=== PATIENT | female | born 1995 | race Two or more races ===

== ENCOUNTER 2024-03-30 13:24 | Outpatient (CLI) | payer MEDICAID, SELFPAY ==
[2024-03-30 13:36] VITALS: BP 128/74; PULSE 77; PULSE 98; RESP 16; TEMP 37.2
[2024-03-30 13:39] VITALS: BMI 36.6
[2024-03-30 13:42] VITALS: TEMP 37.2
[2024-03-30] MEDS: BETAMET ACET/BETAMET NA PH (Celestone) 6 MG/ML VIAL 12 MG IM (14:12)
== END 2024-03-30 14:15 | disposition home or self-care (01) ==
LOC: S4S1 13:25 → S4SX 13:26
PROVIDERS: Referring Provider Specialist; Visit Provider Specialist
DX: Z34.03 Encounter for supervision of normal first pregnancy, third trimester (principal); Z36.9 Encounter for antenatal screening, unspecified; Z3A.35 35 weeks gestation of pregnancy
CPT/HCPCS: 59025; 96372; J0702

== ENCOUNTER 2024-03-31 14:12 | Outpatient (CLI) | payer MEDICAID, SELFPAY ==
[2024-03-31 14:18] VITALS: BMI 36.7
[2024-03-31 14:28] VITALS: BP 117/61; PULSE 92
[2024-03-31] MEDS: BETAMET ACET/BETAMET NA PH (Celestone) 6 MG/ML VIAL 12 MG IM (14:53)
== END 2024-03-31 15:05 | disposition home or self-care (01) ==
LOC: S4S1 14:15 → S4SX 14:15
PROVIDERS: Referring Provider Specialist; Visit Provider Specialist
DX: Z34.03 Encounter for supervision of normal first pregnancy, third trimester (principal); Z36.9 Encounter for antenatal screening, unspecified; Z3A.35 35 weeks gestation of pregnancy
CPT/HCPCS: 59025; 96372; J0702

== ENCOUNTER 2024-04-06 03:38 | Observation (INO) | payer MEDICAID, SELFPAY ==
[2024-04-06] VITALS (13 sets, daily range): BP systolic 133–140; BP diastolic 83–86; PULSE 64–79; O2SAT 98–100; BMI 37.4
--- NOTE | 2024-04-06 04:31 | ESOP_ITS ---
Operative Note - PHARMACOGENETICIST Procedure Date of procedure: 04/06/24 Procedure Performed: Removal of Transvaginal Cervical Cerclage Indication: Contractions at 36 weeks. Pre-Op diagnosis: IUP 36 weeks Incompetent Cervix Contractions with Cerclage in place. Post-Op diagnosis: Same Cervix -/-2/vtx/I Anesthesia type: None Procedure description: Cervical cerclage removal. Implants: None Findings: Mersilene cerclage in place at 12 oclock Complications: none Narrative: Speclum placed Cerclage grasped with ring forceps. Tolu Scissors used to remove cerclage Surgical staff [place] Diagnosis Discharge Diagnosis (1) Incompetent cervix in : Status: Acute Problem List Completed Was Problem List Reviewed/Reconciled?: Yes
[2024-04-06] MEDS: BETAMET ACET/BETAMET NA PH (Celestone) 6 MG/ML VIAL 12 MG IM (05:00)
[2024-04-06 05:32] LABS: Collection Type, Urine Clean Catch; RBC,Urine 0 /hpf (0-3)
[2024-04-06 05:37] LABS: Basophils % (Auto) 0 % (0-2.5); Eosinophils # (Auto) 0.1 Thou/mm3 (0.0-0.5); Eosinophils % (Auto) 1 % (0-10); Hematocrit 36.7 % (36.0-46.0); Hemoglobin 12.6 g/dL (12.0-16.0); Immature Granulocytes % (Auto) 0 % (0-0); Immature Granulocytes Auto 0.03 Thou/mm3 (0.00-0.00); Lymphocytes # (Auto) 2.3 Thou/mm3 (1.0-4.8); Lymphocytes % (Auto) 30 % (10-50); Mean Corpuscular HGB Conc 34.3 g/dl (31.0-37.0); Mean Corpuscular Hemoglobin 30.1 pg (25.0-35.0); Mean Corpuscular Volume 88 fL (80-100); Monocytes # (Auto) 0.6 Thou/mm3 (0.0-0.8); Monocytes % (Auto) 8 % (0-12); Neutrophils # (Auto) 4.6 Thou/mm3 (1.8-7.7); Neutrophils % (Auto) 61 % (37-80); Nucleated Red Blood Cell % 0 /100 WBC (0); Platelet Count 208 Thou/mm3 (140-440); RDW Standard Deviation 43.3 fL (36.4-46.3); Red Blood Count 4.19 Miln/mm3 (4.00-5.20); White Blood Count 7.5 Thou/mm3 (3.6-11.0)
[2024-04-06 05:58] LABS: Alanine Aminotransferase 17 U/L (10-49); Albumin, Serum 3.3 gm/dL (3.5-5.0); Albumin/Globulin Ratio 1.4 (1.2-2.2); Alkaline Phosphatase 158 U/L (46-116); Anion Gap 9 (7-16); Aspartate Amino Transferase 12 U/L (0-34); BUN/Creatinine Ratio 32 Ratio (12-20); Bilirubin,Total 0.3 mg/dL (0.3-1.2); Blood Urea Nitrogen 16 mg/dL (9-23); Calcium 8.6 mg/dL (8.3-10.6); Calcium (Corrected) 9.2 mg/dL (8.5-10.1); Carbon Dioxide 22.2 mMol/L (20.0-31.0); Chloride 106 mMol/L (98-107); Creatinine (Component) 0.5 mg/dL (0.6-1.3); Estimated Creatinine Clearance 189.8 mL/min (>60); Globulin 2.3 gm/dL (2.3-3.5); Glucose 104 mg/dL (74-106); LDH (Lactate Dehydrogenase) 188 U/L (120-246); Osmolality,Calculated 275 (275-295); Potassium 3.7 mMol/L (3.4-5.1); Sodium 137 mMol/L (136-145); Total Protein 5.6 gm/dL (5.7-8.2); Uric Acid 4.4 mg/dL (3.1-7.8); eGFR > 60 See Note
[2024-04-06 06:18] LABS: Bacteria,Urine Rare; Bilirubin,Urine Negative (Negative); Blood,Urine Negative (Negative); Clarity,Urine Clear (Clear/Hazy); Color,Urine Lt-Yellow (Lt Yel-Yel); Glucose, Urine Negative (Negative); Ketones,Urine Negative (Negative); Leukocyte Esterase,Urine Positive (Negative); Nitrite,Urine Negative (Negative); PH,Urine 6.5 (5.0-7.0); Protein,Urine 2+ (Neg - Trace); Squamous Epithelial Cell,Urine 2 /hpf (0-5); Urobilinogen,Urine Negative mg/dL (0.0-1.0); WBC,Urine 20 /hpf (0-5)
[2024-04-06 06:53] LABS: Fibrinogen 467 mg/dL (175-375); INR 0.9 (0.9-1.3); Partial Thromboplastin Time 26.3 Seconds (22.0-36.0); Prothrombin Time 10.1 Seconds (9.0-12.2)
== END 2024-04-06 06:08 | disposition home or self-care (01) ==
PROVIDERS: Admitting Provider Specialist; PCP Family Medicine; Visit Provider Specialist
DX: O47.03 False labor before 37 completed weeks of gestation, third trimester (principal); O34.33 Maternal care for cervical incompetence, third trimester; Z3A.36 36 weeks gestation of pregnancy
CPT/HCPCS: 36415; 59025; 59899; 80053; 81001; 83615; 84550; 85025; 85384; 85610; 85730; 96372; J0702

== ENCOUNTER 2024-04-21 11:32 | Outpatient (CLI) | payer MEDICAID, SELFPAY ==
[2024-04-21] VITALS (9 sets, daily range): BP systolic 106–144; BP diastolic 64–87; PULSE 71–85; RESP 18–99; TEMP 36.8; BMI 38.3
[2024-04-21] MEDS: ACETAMINOPHEN 325 MG TABLET 650 MG PO (12:24)
[2024-04-21 12:27] LABS: Collection Type, Urine Clean Catch
[2024-04-21 12:28] LABS: Basophils % (Auto) 0 % (0-2.5); Eosinophils # (Auto) 0.1 Thou/mm3 (0.0-0.5); Eosinophils % (Auto) 1 % (0-10); Hematocrit 38.1 % (36.0-46.0); Hemoglobin 13.2 g/dL (12.0-16.0); Immature Granulocytes % (Auto) 0 % (0-0); Immature Granulocytes Auto 0.03 Thou/mm3 (0.00-0.00); Lymphocytes % (Auto) 24 % (10-50); Mean Corpuscular HGB Conc 34.6 g/dl (31.0-37.0); Mean Corpuscular Hemoglobin 30.6 pg (25.0-35.0); Mean Corpuscular Volume 88 fL (80-100); Monocytes # (Auto) 0.6 Thou/mm3 (0.0-0.8); Monocytes % (Auto) 8 % (0-12); Neutrophils # (Auto) 5.6 Thou/mm3 (1.8-7.7); Neutrophils % (Auto) 67 % (37-80); Nucleated Red Blood Cell % 0 /100 WBC (0); Platelet Count 225 Thou/mm3 (140-440); RDW Standard Deviation 47.8 fL (36.4-46.3); Red Blood Count 4.31 Miln/mm3 (4.00-5.20); White Blood Count 8.3 Thou/mm3 (3.6-11.0)
[2024-04-21 12:41] LABS: Alanine Aminotransferase 26 U/L (10-49); Albumin, Serum 3.4 gm/dL (3.5-5.0); Albumin/Globulin Ratio 1.5 (1.2-2.2); Alkaline Phosphatase 177 U/L (46-116); Anion Gap 9 (7-16); Aspartate Amino Transferase 18 U/L (0-34); BUN/Creatinine Ratio 20 Ratio (12-20); Bilirubin,Total 0.3 mg/dL (0.3-1.2); Blood Urea Nitrogen 14 mg/dL (9-23); Calcium 8.4 mg/dL (8.3-10.6); Calcium (Corrected) 8.9 mg/dL (8.5-10.1); Carbon Dioxide 24.6 mMol/L (20.0-31.0); Chloride 103 mMol/L (98-107); Creatinine (Component) 0.7 mg/dL (0.6-1.3); Estimated Creatinine Clearance 137.3 mL/min (>60); Globulin 2.2 gm/dL (2.3-3.5); Glucose 84 mg/dL (74-106); LDH (Lactate Dehydrogenase) 214 U/L (120-246); Osmolality,Calculated 273 (275-295); Potassium 4.1 mMol/L (3.4-5.1); Sodium 137 mMol/L (136-145); Total Protein 5.6 gm/dL (5.7-8.2); Uric Acid 6.2 mg/dL (3.1-7.8); eGFR > 60 See Note
[2024-04-21 12:48] LABS: Fibrinogen 585 mg/dL (175-375); INR 0.9 (0.9-1.3); Partial Thromboplastin Time 27.6 Seconds (22.0-36.0)
[2024-04-21 13:08] LABS: Bacteria,Urine Rare; Bilirubin,Urine Negative (Negative); Blood,Urine Trace (Negative); Color,Urine Yellow (Lt Yel-Yel); Glucose, Urine Negative (Negative); Ketones,Urine Negative (Negative); Leukocyte Esterase,Urine Positive (Negative); Nitrite,Urine Negative (Negative); PH,Urine 6.5 (5.0-7.0); Protein,Urine 2+ (Neg - Trace); RBC,Urine < 1 /hpf (0-3); Specific Gravity,Urine 1.015 (1.001-1.035); Squamous Epithelial Cell,Urine 10 /hpf (0-5); Urobilinogen,Urine Negative mg/dL (0.0-1.0); WBC,Urine 32 /hpf (0-5)
[2024-04-21 13:11] LABS: Clarity,Urine Hazy (Clear/Hazy)
[2024-04-21] MEDS: MEPERIDINE INJ 50 MG/ML VIAL IM (13:50)
[2024-04-21] MEDS: PROMETHAZINE INJ 25 MG/ML VIAL IM (13:50)
== END 2024-04-21 15:10 | disposition home or self-care (01) ==
LOC: S4S1 11:32 → S4SX 11:33
PROVIDERS: Referring Provider Specialist; Visit Provider Specialist
DX: Z34.03 Encounter for supervision of normal first pregnancy, third trimester (principal); Z36.9 Encounter for antenatal screening, unspecified; Z3A.38 38 weeks gestation of pregnancy
CPT/HCPCS: 36415; 59025; 80053; 81001; 83615; 84550; 85025; 85384; 85610; 85730; 96372; J2175; J2550; A9270

== ENCOUNTER 2024-04-22 12:22 | Inpatient (IN) | payer MEDICAID, SELFPAY ==
--- NOTE | 2024-04-21 10:49 | ESHP_ITS ---
RE: STEFANIE ALFRED : 1995 DATE OF ADMISSION: 04/22/2024 HISTORY OF PRESENT ILLNESS: This is a 29-year-old 2 para 0-0-1-0 with due date of 05/04 with intrauterine at 38 weeks and 2 days who presents for contractions. The patient's is complicated by incompetent cervix and she had a cerclage placed on 01/02 and the cerclage was removed on 04/06. She received betamethasone on 03/30 and 03/31 for cholestasis of and has been taking Ursodiol. She is a GDMA1 diet controlled. She has had a headache off and on since yesterday and is noted to have elevated blood pressures and proteinuria. ALLERGIES: LATEX AND SHRIMP. MEDICATIONS: 1. multivitamin 1 p.o. daily. 2. Aspirin 81 mg 1 p.o. daily. 3. Ursodiol 300 mg 1 p.o. b.i.d. 4. Omeprazole 20 mg 1 p.o. daily p.r.n. heartburn. PAST MEDICAL HISTORY: Incompetent cervix, right ovarian cyst, depression, spontaneous at 18 weeks with chorioamnionitis, incompetent cervix, gastroesophageal reflux disease, chronic low back pain. PAST SURGICAL HISTORY: Cervical cerclage placement on 01/03/2024, cervical cerclage removal on 04/06/2024. SOCIAL HISTORY: She denies any alcohol drug use or smoking. OBSTETRIC HISTORY: 05/29/2020, 18 weeks spontaneous , no D and C, chorioamnionitis. FAMILY HISTORY: Denies. REVIEW OF SYSTEMS: She denies any chest pain, palpitations, cough, fever, shortness of breath, or lower extremity pain. She denies any headache, change in vision or right upper quadrant pain. PHYSICAL EXAMINATION: VITAL SIGNS: Blood pressure 143/92, heart rate 70, respirations 18, temperature 98.2, weight 220 pounds. HEENT: Oropharynx and sclerae are clear. LUNGS: Clear to auscultation bilaterally. HEART: Regular rate and rhythm. ABDOMEN: Gravid, term size consistent with estimated weight 7.5 pounds. PELVIC: See RN notes. EXTREMITIES: Nontender. SKIN: No gross rashes or lesions. NEUROLOGIC: No focal deficit. ASSESSMENT: Intrauterine at 38 weeks and 2 days; gestational diabetes mellitus class A1, well controlled; cholestasis of ; incompetent cervix status post removal of cervical cerclage, preeclampsia. PLAN: Induction of labor. Anticipate spontaneous vaginal delivery. Informed consent was obtained. The patient has been aware of the risks, complications, alternatives, and benefits of the proposed procedure and she agrees. She is aware of the risk of operative vaginal delivery and delivery and agrees with these modes of delivery if indicated. DT: 10:15:30 TT: 10:46:00 Ref: [id number] - TID: [id number] MTDD
[2024-04-22] VITALS (57 sets, daily range): BP systolic 0–166; BP diastolic 0–103; PULSE 72–97; RESP 16–98; TEMP 36.7; O2SAT 96–99; BMI 38.0
[2024-04-22 14:43] LABS: Collection Type, Urine Clean Catch
[2024-04-22 14:44] LABS: Basophils % (Auto) 0 % (0-2.5); Eosinophils # (Auto) 0.1 Thou/mm3 (0.0-0.5); Eosinophils % (Auto) 1 % (0-10); Hematocrit 37.8 % (36.0-46.0); Hemoglobin 13.3 g/dL (12.0-16.0); Immature Granulocytes % (Auto) 0 % (0-0); Immature Granulocytes Auto 0.03 Thou/mm3 (0.00-0.00); Lymphocytes # (Auto) 1.6 Thou/mm3 (1.0-4.8); Lymphocytes % (Auto) 18 % (10-50); Mean Corpuscular HGB Conc 35.2 g/dl (31.0-37.0); Mean Corpuscular Hemoglobin 30.6 pg (25.0-35.0); Mean Corpuscular Volume 87 fL (80-100); Monocytes # (Auto) 0.6 Thou/mm3 (0.0-0.8); Monocytes % (Auto) 7 % (0-12); Neutrophils # (Auto) 6.6 Thou/mm3 (1.8-7.7); Neutrophils % (Auto) 74 % (37-80); Nucleated Red Blood Cell % 0 /100 WBC (0); Platelet Count 223 Thou/mm3 (140-440); RDW Standard Deviation 46.6 fL (36.4-46.3); Red Blood Count 4.34 Miln/mm3 (4.00-5.20)
[2024-04-22 15:02] LABS: Alanine Aminotransferase 46 U/L (10-49); Albumin, Serum 3.3 gm/dL (3.5-5.0); Albumin/Globulin Ratio 1.6 (1.2-2.2); Alkaline Phosphatase 183 U/L (46-116); Anion Gap 9 (7-16); Aspartate Amino Transferase 39 U/L (0-34); BUN/Creatinine Ratio 22 Ratio (12-20); Bilirubin,Total 0.3 mg/dL (0.3-1.2); Blood Urea Nitrogen 13 mg/dL (9-23); Calcium 8.5 mg/dL (8.3-10.6); Calcium (Corrected) 9.1 mg/dL (8.5-10.1); Carbon Dioxide 22.1 mMol/L (20.0-31.0); Chloride 105 mMol/L (98-107); Creatinine (Component) 0.6 mg/dL (0.6-1.3); Estimated Creatinine Clearance 159.4 mL/min (>60); Globulin 2.1 gm/dL (2.3-3.5); Glucose 94 mg/dL (74-106); LDH (Lactate Dehydrogenase) 214 U/L (120-246); Osmolality,Calculated 272 (275-295); Sodium 136 mMol/L (136-145); Total Protein 5.4 gm/dL (5.7-8.2); eGFR > 60 See Note
[2024-04-22 15:08] LABS: Bilirubin,Urine Negative (Negative); Blood,Urine 1+ (Negative); Color,Urine Yellow (Lt Yel-Yel); Glucose, Urine Negative (Negative); Ketones,Urine Negative (Negative); Leukocyte Esterase,Urine Positive (Negative); Nitrite,Urine Negative (Negative); Protein,Urine 3+ (Neg - Trace); RBC,Urine 22 /hpf (0-3); Specific Gravity,Urine 1.033 (1.001-1.035); Squamous Epithelial Cell,Urine 11 /hpf (0-5); Urobilinogen,Urine Negative mg/dL (0.0-1.0); WBC,Urine 55 /hpf (0-5)
[2024-04-22 15:20] LABS: Fibrinogen 574 mg/dL (175-375); INR 0.9 (0.9-1.3); Partial Thromboplastin Time 27.2 Seconds (22.0-36.0); Prothrombin Time 9.9 Seconds (9.0-12.2)
[2024-04-22 15:21] LABS: Syphilis Nonreactive (Nonreactive)
[2024-04-22 16:27] LABS: Clarity,Urine Hazy (Clear/Hazy)
[2024-04-22] MEDS: MISOPROSTOL 50 mCg TABLET PO ×2 (17:00→22:53)
[2024-04-22] MEDS: INSULIN HUM REGULAR 1 UNIT/0.01 ML (PER UNIT) SC (20:48)
[2024-04-22] MEDS: SODIUM CHLORIDE 0.9% 1000 ML 1,000 ML 125 ML IV (23:13)
[2024-04-23] VITALS (49 sets, daily range): BP systolic 0–166; BP diastolic 0–92; PULSE 67–99; RESP 13–18; TEMP 36.2–37.1; O2SAT 96–99
[2024-04-23] MEDS: PANTOPRAZOLE INJ 40 MG VIAL IVP (01:00)
[2024-04-23] MEDS: cefTRIAXone/D5w 1gm IV premix 50 ML IV ×2 (01:00→21:29)
[2024-04-23 03:11] LABS: Amphetamine/Metham Scrn,Ur OB Negative (Negative); Benzoylecgonine Screen, Ur OB Negative (Negative); Opiate Screen,Urine OB Negative (Negative); THC Screen,Urine OB Negative (Negative)
[2024-04-23] MEDS: MISOPROSTOL 50 mCg TABLET PO ×2 (03:32→09:37)
[2024-04-23] MEDS: ONDANSETRON INJ 2 MG/ML INJ 2 ML 4 MG IV (06:05)
[2024-04-23] MEDS: SODIUM CHLORIDE 0.9% 1000 ML 1,000 ML 125 ML IV ×2 (07:14→14:16)
[2024-04-23] MEDS: INSULIN HUM REGULAR 1 UNIT/0.01 ML (PER UNIT) SC (08:02)
[2024-04-23] MEDS: fentaNYL CIT INJ 50 mCg/ML AMP 2ML 100 MCG IV ×2 (09:35→13:11)
--- NOTE | 2024-04-23 13:50 | PD.LDPN ---
Documentation for date of: 04/23/24 OB Labor Progress Note Pain Control Comments: Fentanyl Pelvic Exam Dilation (cm): 3 Effacement (%): 50 station: -3 Amniotic membrane status: Intact Contractions Monitor mode: External Contraction frequency: OCCASIONAL Contraction intensity: Mild Status status: Category l Assessment and Plan Comments: Declines further trial of induction of labor and desires Delivery. Plan C/S: Informed consent was obtained. The patient was made aware of the risk complications alternatives and benefits of the proposed procedure and she agrees.
[2024-04-23] MEDS: FAMOTIDINE INJ 10 MG/ML VIAL 2 ML 20 MG IV (14:36)
[2024-04-23] MEDS: ceFAZolin/D5W 2 GM IV 2 GM/100 ML BAG IV (14:36)
[2024-04-23] MEDS: METOCLOPRAMIDE INJ 5 MG/ML VIAL 2 ML 10 MG IVP (14:36)
--- NOTE | 2024-04-23 16:05 | ESDS_ITS ---
DS: Providers Provider Date of admission: 04/22/24 14:13 Primary care physician: Physician No Primary/Family Admitting Provider: Narendra Huff MD Attending Provider on Admission: Narendra Huff MD Attending Provider on DC: Narendra Huff MD Discharging Provider: Narendra Huff MD DS: Diagnosis Problem List Completed Was Problem List Reviewed/Reconciled?: Yes Summary/Hosp Course Peripartum Data Procedures: Procedures Operation Date: 04/23/24 15:30 <No data on this case meets the specified criteria> Operation Date: 04/24/24 14:45 <No data on this case meets the specified criteria> Time Spent with Patient Time attestation: Total time spent providing and/or coordinating discharge services: Exam Vital Signs Temp Pulse Resp BP Pulse Ox 98.8 F 68 18 160/85 H 98 04/23/24 07:11 04/23/24 14:26 04/23/24 07:11 04/23/24 14:26 04/22/24 14:35 Discharge Plan Plan Patient Disposition: HOME (Self Care) Patient condition on transfer: Stable Prescriptions/Referrals Prescriptions/Med Rec: New hydrocodone-acetaminophen 5-325 mg tablet 1 tab PO Q6H MDD 4 PRN (Reason: pain) Qty: 20 0RF ibuprofen 600 mg tablet 600 mg PO Q6H PRN (Reason: pain) Qty: 30 0RF Continued [id number] 1 mg Tablet See Rx Instructions .ROUTE .COMPLEX Rx Instructions: as instructed Referrals: No Primary/Family,Physician [Primary Care Provider] - Patient/Caregiver Discharge Instructions Discharge Activity: activity as tolerated Other Discharge Activity Instructions:: Follow up office 1 week. Print Language: Guyanese Stand Alone Forms: Dinorah Award Info., Patient Portal Info Letter Discharge Order Discharge Orders: Discharge (Routine); Ordered 04/25/24 Ordered By: Narendra Huff Planned Discharge Date 04/25/24
--- NOTE | 2024-04-23 16:19 | SUR.PHASEI ---
1619: Pt. AAOx4, vitals stable, breathing unlabored, no complaint of pain or nausea, dressing to lower ABD CDI, peripad in place with minimal amount of blood, report received from Jesse HAMPTON, Lea HAMPTON and Bernabe YAO.
--- NOTE | 2024-04-23 16:30 | SUR.PHASEI ---
1630: Report given to Edwin RN, pt. AAOx4, vitals stable, breathing unlabored, no complaint of pain or nausea, dressing to lower ABD CDI, peripad in place with minimal amount of blood.
--- NOTE | 2024-04-23 16:30 | SUR.PHASEI ---
1630: received report from BERTA Boyce. pt alert and oriented x3. denies any pain or discomfort.no s/s of resp. distress or discomfort.dressing to lower mis abdomen clean, dry and intact; no active bleeding from dressing noted. xiong cath in place intact with clear yellow urine in the xiong bag.
--- NOTE | 2024-04-23 17:40 | SUR.PHASEI ---
1740: report given to BERTA Couch. pt alert and oriented x3. denies any pain or discomfort. no s/s of resp. distress or discomfort. dressing to lower mid abdomen clean, dry and intact. xiong cath in place and intact with yellow color urine output. estimated urine output 50 ml.
--- NOTE | 2024-04-23 17:45 | SUR.PHASEI ---
1745: transfer to [facility] to room [id number] via bed with staff. pt alert and oriented x3. denies any pain or discomfort. no s/s of resp. distress or discomfort. dressing to lower mid abdomen clean, dry and intact. xiong cath in place and intact with yellow color urine output.
[2024-04-23] MEDS: OXYTOCIN in NS 20 units 20 UNIT/1,000 ML BAG 125 UNIT IV (19:25)
--- NOTE | 2024-04-23 20:18 | PC.NURSE ---
pharmacy called by primary RN to re-time rocephin and have medication delivered to OB.
[2024-04-23 22:27] LABS: Basophils % (Auto) 0 % (0-2.5); Eosinophils % (Auto) 0 % (0-10); Hematocrit 33.5 % (36.0-46.0); Hemoglobin 11.6 g/dL (12.0-16.0); Immature Granulocytes % (Auto) 0 % (0-0); Immature Granulocytes Auto 0.05 Thou/mm3 (0.00-0.00); Lymphocytes # (Auto) 1.7 Thou/mm3 (1.0-4.8); Lymphocytes % (Auto) 15 % (10-50); Mean Corpuscular HGB Conc 34.6 g/dl (31.0-37.0); Mean Corpuscular Hemoglobin 30.6 pg (25.0-35.0); Mean Corpuscular Volume 88 fL (80-100); Monocytes # (Auto) 0.8 Thou/mm3 (0.0-0.8); Monocytes % (Auto) 7 % (0-12); Neutrophils # (Auto) 8.8 Thou/mm3 (1.8-7.7); Neutrophils % (Auto) 77 % (37-80); Nucleated Red Blood Cell % 0 /100 WBC (0); Platelet Count 241 Thou/mm3 (140-440); RDW Standard Deviation 49.5 fL (36.4-46.3); Red Blood Count 3.79 Miln/mm3 (4.00-5.20); White Blood Count 11.5 Thou/mm3 (3.6-11.0)
[2024-04-23] MEDS: KETOROLAC INJ 30 MG/ML VIAL IVP (23:51)
--- NOTE | 2024-04-24 07:07 | PD.LDDELS ---
Data (Guzman) Data Hx Section: No : 1 Para: 0 Term: 0 : 0 : 0 Delivery Data (Guzman) Labor Data ROM Date: 04/23/24 ROM Time: 15:21 Rupture Type: AROM Delivery Data EDC: 05/04/24 EDC calculated by:: LMP/early US confirmation Labor Onset Stage 1 Date: 04/23/24 Labor Onset Stage 1 Time: 15:21 Labor Onset Stage 2 Date: 04/23/24 Labor Onset Stage 2 Time: 15:21 Delivery Date: 04/23/24 Delivery Time: 15:22 Gestational age (weeks): 38 Gestational age (days): 3 Placenta Delivery Date: 04/23/24 Placenta Delivery Time: 15:23 Delivered by: Narendra Huff Delivery nurse: Nursing, Generic Other staff at delivery: Nursery Nurse Other staff at delivery: ObanaMagdalena Delivery Method Delivery: Delivery Type: Primary Presentation: Vertex Position: OP Anesthesia Type Primary Anesthesia: Spinal Placenta Placenta Delivery: Manual EBL Estimated blood loss (ml): 700 Umbilical Cord Nuchal Cord: x3 Tightly Additional Procedures Right ovarian cystectomy Left paratubal cystectomy Complications Complications: Uterine atony [place] Data (Guzman) Data Gender: Female Infant Weight Grams: 3505 1 Minute Total: 9 5 Minute Total: 9
--- NOTE | 2024-04-24 07:22 | ESPR_ITS ---
RE: STEFANIE ALFRED : 1995 DATE OF SERVICE: 04/24/2024 S: Postop day #1, the patient denies any problem or complaints. O: Vital Signs: Stable. She is afebrile. Lungs: Clear to auscultation bilaterally. Heart: Regular rate and rhythm. Abdomen: Dressing dry and intact. Fundus is firm. Extremities: Nontender. Laboratory Data: Hemoglobin pre-delivery is 13.3. Post delivery is 11.6. A: Postop day #1, status post delivery. P: Remove dressing, DC IV, encourage ambulation, support, and possible discharge home tomorrow. DT: 07:01:06 TT: 07:21:00 Ref: [id number] - TID: [id number]
[2024-04-24 08:00] VITALS: BP 130/84; PULSE 74; RESP 17; TEMP 36.8; O2SAT 96
[2024-04-24] MEDS: PANTOPRAZOLE 40 MG TABLET PO (09:50)
--- NOTE | 2024-04-24 10:04 | ESOP_ITS ---
RE: STEFANIE ALFRED : 1995 DATE OF OPERATION: 04/23/2024 PREOPERATIVE DIAGNOSES: 1. Intrauterine at 38 weeks and 3 days. 2. Cholestasis of . 3. Preeclampsia. 4. Induction of labor. 5. Failed induction. POSTOPERATIVE DIAGNOSES: 1. Intrauterine at 38 weeks and 3 days. 2. Cholestasis of . 3. Preeclampsia. 4. Induction of labor. 5. Failed induction. 6. Endometriosis. 7. Right ovarian cyst. 8. Left paratubal cyst. PROCEDURES PERFORMED: 1. Primary low transverse section via Pfannenstiel skin incision. 2. Right ovarian cystectomy. 3. Left paratubal cystectomy. SURGEON: Narendra Huff DO JANITORIAL TECH: JUAN Mccracken ANESTHESIA: Spinal. ANESTHESIOLOGIST: Bernabe Birmingham CRNA ESTIMATED BLOOD LOSS: 700 mL. COMPLICATIONS: Uterine atony responding to uterotonics. FINDINGS: A live female infant, cephalic presentation occiput posterior, clear amniotic fluid, nuchal cord x3 tight. Uterus initially atonic, but responded to uterotonics. Placenta removed complete and intact. Right ovary contained a right paraovarian cyst, appears to be endometriotic cyst and a left paratubal cyst, which contained clear fluid. Right paraovarian cyst was 3 x 4 cm and the left paratubal cyst was approximately 2 x 2 cm containing serous fluid. The right ovary contained a hemorrhagic fimbriated end consistent with blood clotting and retrograde menstrual flow. DESCRIPTION OF PROCEDURE: After proper informed consent was obtained and the patient was made aware of the risks, complications, alternatives, and benefits of the proposed procedure, she was taken to the operating room where she underwent induction of spinal anesthesia. She was placed in the dorsal supine position with leftward tilt. She was prepped and draped in the usual sterile fashion. A timeout was performed. A Pfannenstiel skin incision was made with scalpel and carried through to the underlying layer of fascia with the Bovie. The fascia was nicked in the midline. Incision was extended bilaterally with the Bovie. The inferior aspect of the fascia incision was grasped with Nidhi clamps and elevated. The underlying rectus muscles were dissected off with the Bovie. The rectus muscles were in the midline. The peritoneum was identified between 2 Motley clamps and entered sharply with the Metzenbaum scissors. The incision was extended superiorly and inferiorly with good visualization of the bladder. The bladder blade was then inserted. Vesicouterine peritoneum was incised transversely and bladder flap was created digitally. The bladder blade was reinserted. The lower uterine segment was incised in transverse fashion with scalpel. The incision was extended bilaterally digitally. The 's head was delivered. The mouth and nose were suctioned with the bulb suction and nuchal cord was reduced x3. The shoulder and body were delivered atraumatically. The cord was clamped and cut. The was sent off to awaiting pediatric staff. Cord blood and gases were sent. The placenta was then removed manually. The uterus was exteriorized and cleared of all clots and debris. The uterus was initially atonic, but responded to uterotonics. The uterine incision was closed with #1-0 chromic catgut suture in a running locking fashion and second layer with same suture was used to imbricate the first layer and obtained excellent hemostasis. The vesicouterine peritoneum was closed with 2-0 chromic catgut suture in a running fashion. Attention was then turned to the right paraovarian cyst and using the Enseal X1 small jaw, a right ovarian cystectomy was performed and subsequently sent to Pathology. Attention was then turned to the left paraovarian cyst, which had fimbria of the fallopian tube surrounding it. Care was taken to remove the paratubal cyst without involving removal of any of the fimbriated segments of the fallopian tube. This was also done with the Enseal X1 small jaw. Hemostasis was achieved with both adnexa. The fundus was firm. The uterus was returned to the abdomen. The gutters were cleared of all clots and debris and the peritoneum was closed with 0 chromic catgut suture in running fashion. The muscle was closed with 0 chromic catgut suture in running fashion. The fascia was closed with 0 Vicryl beginning at each angle and ending at center in running fashion. Subcutaneous tissue was irrigated with normal saline solution, found to be hemostatic, closed with 2-0 chromic catgut suture in running fashion. The skin was closed with 4-0 Monocryl. A Dermabond Prineo dressing was applied. A sterile pressure dressing was applied. She tolerated the procedure well. Counts were correct. I discussed with the patient the nature of her condition, intraoperative findings, and expectations for recovery. All questions answered. DT: 15:59:52 TT: 16:41:00 Ref: [id number] - TID: [id number]
[2024-04-24 11:47] VITALS: BP 123/82; PULSE 78; RESP 16; TEMP 37.1; O2SAT 96
[2024-04-24] MEDS: IBUPROFEN TAB 400 MG TABLET 800 MG PO (11:51)
--- NOTE | 2024-04-24 13:41 | PC.SS ---
WEDDING PLANNER conducted bedside contact with the patient to address nursing referral indicating patient possessed history of anxiety. WEDDING PLANNER introduced self, role and basis of referral. Present with patient was Christian STEWARD. Patient gave permission for FOB to be present during discussion. Patient confirmed past history of anxiety. Per patient, level of anxiety not impairing daily functioning. Patient not prescribed medication for mood disorder nor has patient accessed therapy. Patient denies current intent/plan of SI/HI. [place], Angelica; is the patient?s first child. delivered via . Patient plans on the . OB services provided by Dr. Huff. Patient reports compliance with OB services. Patient is aligned with WIC. Patient not receiving SNAP or TANF. Patient denies history of alcohol/drug abuse. Patient denies CWS intervention. Patient denies episodes of domestic violence. Patient has access to appropriate supplies and equipment; to include a car seat. Family will provide transportation upon discharge. Patient describes possessing support system consisting of FOB and family. WEDDING PLANNER provided the patient with community resources to include [facility] and Warm Line. No further intervention required at this time, nursing home social worker will be available to address any further concerns. WEDDING PLANNER updated bedside nurse.
[2024-04-24 15:40] VITALS: BP 119/75; PULSE 84; RESP 17; TEMP 37.2
[2024-04-24 20:00] VITALS: BP 120/79; PULSE 84; RESP 18; TEMP 36.9; O2SAT 96
[2024-04-24] MEDS: HYDROcodone/APAP 5/325 TABLET 1 TAB PO (20:18)
[2024-04-24] MEDS: cefTRIAXone 1,000 MG, LIDOCAINE 1% 20 ML 2.1 ML IM (21:43)
--- NOTE | 2024-04-24 22:58 | PC.NURSE ---
04/24/24 2100: IV observed leaking/swelling/painful prior to administration of ordered antibiotic. MD Huff notified. Received orders for IM route antibiotic Ceftriaxone 1,000mg diluted in 1% lidocaine, 2.1ml. Medication administered pt. tolerated well.
--- NOTE | 2024-04-24 23:09 | PC.NURSE ---
04/24/24 2200: Mother assisted with latching/. Bilateral nipples inverted. Mother provided with breast pump and education on use. Successful latch on right side.
[2024-04-25] MEDS: IBUPROFEN TAB 400 MG TABLET 800 MG PO (01:15)
--- NOTE | 2024-04-25 01:58 | PC.NURSE ---
04/25/24 0115: Mother tearful in bed. States pain is 9/10. Motrin administered now. Pt. made aware that norco x2 will be available in approximately 1 hour and nurse will administer at that time. Pt states tolerable pain level is 5/10. RN educated pt. on pressing her call light to inform nurse of rising pain level once it reaches 5/10 to prevent pain from further worsening. Pt. verbalizes understanding.
[2024-04-25] MEDS: HYDROcodone/APAP 5/325 TABLET 2 TAB PO (02:18)
[2024-04-25 03:57] VITALS: BP 117/73; PULSE 87; RESP 18; TEMP 36.8; O2SAT 96
[2024-04-25 08:40] VITALS: BP 120/79; PULSE 80; RESP 18; TEMP 36.8; O2SAT 99
--- NOTE | 2024-04-25 10:19 | ESPR_ITS ---
RE: STEFANIE ALFRED : 1995 DATE OF SERVICE: 04/25/2024 SUBJECTIVE: Postop day #2, the patient denies any problem or complaint. OBJECTIVE: Vital Signs: Stable. She is afebrile. Lungs: Clear to auscultation bilaterally. Heart: Regular rate and rhythm. Abdomen: Incision clear and intact. Extremities: Nontender. ASSESSMENT: Postop day #2, status post delivery. PLAN: Discharge home. Discharge instructions were given. Follow up in the office in one week. DT: 08:42:33 TT: 10:18:00 Ref: [id number] - TID: [id number]
== END 2024-04-25 13:15 | disposition home or self-care (01) | DRG 539 ==
LOC: S4SX 04-23 14:30 → S4NX 04-23 15:02
PROVIDERS: Admitting Provider Specialist; Visit Provider Specialist
PROC: 10D00Z1 Extraction of Products of Conception, Low, Open Approach (ICD-10-PCS; CPT 59514; principal; 2024-04-23 15:30)
DX: O26.643 Intrahepatic cholestasis of pregnancy, third trimester (principal); O24.420 Gestational diabetes mellitus in childbirth, diet controlled; Z37.0 Single live birth; Z3A.38 38 weeks gestation of pregnancy; O12.14 Gestational proteinuria, complicating childbirth; O69.1XX0 Labor and delivery complicated by cord around neck, with compression, not applicable or unspecified; O62.2 Other uterine inertia; N83.8 Other noninflammatory disorders of ovary, fallopian tube and broad ligament; O34.83 Maternal care for other abnormalities of pelvic organs, third trimester; N80.101 Endometriosis of right ovary, unspecified depth; O61.0 Failed medical induction of labor; E78.79 Other disorders of bile acid and cholesterol metabolism; K76.89 Other specified diseases of liver
CPT/HCPCS: 36415; 59025; 80053; 80307; 81001; 83615; 84550; 85025; 85384; 85610; 85730; 86780; 86850; 86900; 86901; 87086; A4649; J0689; J0696; J1815; J1885; J2274; J2371; J2405; J2470; J2590; J2765; J3010; J3490; J7030; A9270; J2270